=== PATIENT | male | born 1965 | race Caucasian/White ===

== ENCOUNTER 2020-08-19 08:35 | Outpatient (CLI) | payer BC ==
--- NOTE | 2020-08-19 09:14 | RAD ---
2 views of the lumbar spine: 08/19/2020 HISTORY: Low back pain FINDINGS: There is mild anterolisthesis at the L5-S1 level measuring up to approximately 5 mm. There is facet hypertrophy and a L4-5 and L5-S1 level. There is mild retrolisthesis at L3-4 measuring approximately 5 mm. There is disc space narrowing with degenerative endplate change and anterior oste ophyte formation at L1-2. No acute osseous abnormality is evident. IMPRESSION: Degenerative change within the lumbar spine as detailed above.
== END 2020-08-19 08:36 | disposition home or self-care (01) ==
LOC: BICRAD 08:35
PROVIDERS: ATTEND Specialist
DX: M54.9 Dorsalgia, unspecified (principal); M47.816 Spondylosis without myelopathy or radiculopathy, lumbar region
CPT/HCPCS: 72100